=== PATIENT | male | born 1980 | race African-American/Black ===

== ENCOUNTER 2017-01-31 23:21 | Emergency (ER) | payer MEDICAID ==
[~2017-01-31] VITALS: Ht 180.3 cm; Wt 88.5 kg
[2017-01-31 23:57] LABS: Basophils # (auto) 0.2 uL; Basophils % (auto) 2.6 % (0.0-2.0); Eosinophils # (auto) 0.1 uL; Eosinophils % (auto) 1.5 % (0.0-7.0); Hematocrit 43.6 % (41.0-53.0); Hemoglobin 14.6 g/dL (13.5-17.5); Lymphocytes % (auto) 37.4 % (10.0-50.0); Mean Corpuscular Hgb Conc. 33.4 g/dL (32.0-36.0); Mean Corpuscular Volume 89.8 fL (80.0-100.0); Mean Platelet Volume 8.4 fL (7.4-10.4); Monocytes # (auto) 0.8 uL; Monocytes % (auto) 10.7 % (0.0-12.0); Neutrophils # (auto) 3.8 uL; Neutrophils % (auto) 47.8 % (37.0-80.0); Platelet Count (auto) 338 10^3/uL (140-450); White Blood Cell 7.9 10^3/uL (4.4-10.8)
[2017-02-01 00:05] LABS: Anion Gap 7 (5-15); Aspartate Aminotransferase 28 U/L (15-37); BUN/Creatinine Ratio 15.5; Blood Urea Nitrogen 15 mg/dL (7-18); Calcium 8.7 mg/dL (8.5-10.1); Carbon Dioxide 28 mmol/L (21-32); Chloride 105 mmol/L (98-107); GFR African American 111 mL/min; GFR Non-African American 92 mL/min; Glucose 98 mg/dL (74-106); Magnesium 1.9 mg/dL (1.6-2.6); Potassium 3.7 mmol/L (3.5-5.1); Sodium 140 mmol/L (136-145)
[2017-02-01 00:09] LABS: Alkaline Phosphatase 103 U/L (45-117); Bilirubin, Total 0.3 mg/dL (0.2-1.0); Total Protein 7.9 g/dL (6.4-8.2)
[2017-02-01 00:25] LABS: B-Type Natriuretic Peptide 7.82 pg/mL (0-100)
[2017-02-01 00:26] LABS: Temperature: 23.5 C (20.0-25.0)
[2017-02-01 00:34] LABS: INR 0.99 (0.9-1.15); Partial Thromboplastin Time 28.3 sec (22.64-33.71); Prothrombin Time 10.7 sec (9.37-12.3)
[2017-02-01] MEDS ORDERED: SODIUM CHLORIDE 0.9% 250 ML IV ONE (06:55)
[2017-02-01] MEDS ORDERED: KETOROLAC TROMETH 30 MG/ML 1ML VIAL IV ONE (07:00)
[2017-02-01] MEDS ORDERED: METOCLOPRAMIDE HCL 5MG/ml INJ 2ml VIAL IV ONE (07:00)
[2017-02-01 07:32] VITALS: BP 144/63
== END 2017-02-01 07:42 | disposition home or self-care (01) ==
LOC: ER 23:21
DX: R07.89 Other chest pain (principal); F12.10 Cannabis abuse, uncomplicated; I10 Essential (primary) hypertension; M54.9 Dorsalgia, unspecified
CPT/HCPCS: 36415; 71010; 80053; 80307; 83735; 83880; 84484; 85025; 85610; 85730; 93005; 96361; 96374; 96375; 99285; J1885; J2765